=== PATIENT | male | born 1990 | race American Indian/Alaskan Native ===

== ENCOUNTER 2019-06-21 18:57 | Emergency (ER) | payer SELFPAY ==
[2019-06-21 19:20] VITALS: BP 110/84
[2019-06-21] MEDS ORDERED: KEPPRA 1,000 MG/NS 0.75% 100ML 1,000 MG/100 ML BAG IV ONE (20:05)
--- NOTE | 2019-06-21 20:10 | Emergency Department Report ---
ED Seizure HPI - General Chief Complaint: Seizure Stated Complaint: SEIZURE Time Seen by Provider: 06/21/19 19:50 Source: patient Mode of arrival: Ambulatory Limitations: No Limitations - History of Present Illness Initial Comments: Patient is 28-year-old male with history of seizure, patient is on Keppra and Vimpat. Patient presented to the ER accompanied by his stating that patient had 2 seizures today. Patient is not sure if the patient is compliant with his medication are not. Patient denied any injuries. MD Complaint: seizure -: Sudden Description of Episode: loss of consciousness, tonic-clonic movement Witnessed:: Yes Trauma: No Seizure History: known seizure disorder Place: home Possible Precipitating Event: none Associated Symptoms: denies other symptoms Treatments Prior to Arrival: none - Related Data Home Medications Medication Instructions Recorded Confirmed Last Taken Lacosamide [Vimpat] 200 mg PO BID 06/21/19 06/21/19 06/21/19 levETIRAcetam 1,000 mg PO BID 06/21/19 06/21/19 06/21/19 Allergies Allergy/AdvReac Type Severity Reaction Status Date / Time No Known Allergies Allergy Verified 06/21/19 19:23 ED Review of Systems ROS: Stated complaint: SEIZURE Other details as noted in HPI Comment: All other systems reviewed and negative Respiratory: denies: cough, orthopnea, shortness of breath, SOB with exertion, SOB at rest, wheezing Cardiovascular: denies: chest pain, palpitations Gastrointestinal: denies: abdominal pain Musculoskeletal: denies: back pain Neurological: denies: headache, weakness ED Past Medical Hx - Past Medical History Previous Medical History?: Yes Hx Seizures: Yes - Surgical History Past Surgical History?: Yes Additional Surgical History: Brain SX - Social History Smoking Status: Current Every Day Smoker Substance Use Type: None - Medications Home Medications: Home Medications Medication Instructions Recorded Confirmed Last Taken Type Lacosamide [Vimpat] 200 mg PO BID 06/21/19 06/21/19 06/21/19 History levETIRAcetam 1,000 mg PO BID 06/21/19 06/21/19 06/21/19 History ED Physical Exam - General Limitations: No Limitations General appearance: alert, in no apparent distress - Head Head exam: Present: atraumatic, normocephalic, normal inspection - Eye Eye exam: Present: normal appearance, PERRL - ENT ENT exam: Present: normal exam, normal orophraynx, mucous membranes moist - Neck Neck exam: Present: normal inspection, full ROM. Absent: tenderness, meningismus, lymphadenopathy, thyromegaly - Respiratory Respiratory exam: Present: normal lung sounds bilaterally - Cardiovascular Cardiovascular Exam: Present: regular rate, normal rhythm, normal heart sounds - GI/Abdominal GI/Abdominal exam: Present: soft, normal bowel sounds. Absent: distended, tenderness, guarding, rebound, rigid, organomegaly, mass, bruit, pulsatile mass, hernia - Extremities Exam Extremities exam: Present: normal inspection, full ROM, normal capillary refill - Back Exam Back exam: Present: normal inspection, full ROM. Absent: CVA tenderness (R), CVA tenderness (L), muscle spasm, paraspinal tenderness, vertebral tenderness - Neurological Exam Neurological exam: Present: alert, oriented X3, CN II-XII intact, normal gait, reflexes normal - Psychiatric Psychiatric exam: Present: normal mood - Skin Skin exam: Present: warm, intact, normal color ED Course Vital Signs 06/21/19 19:11 Temperature 97.4 F L Pulse Rate 74 Respiratory 18 Rate Blood Pressure 110/84 O2 Sat by Pulse 95 Oximetry ED Medical Decision Making - Lab Data Result diagrams: 06/21/19 19:32 06/21/19 19:32 - Medical Decision Making Patient is 28-year-old male with history of seizure, patient is on Keppra and Vimpat. Patient presented to the ER accompanied by his stating that patient had 2 seizures today. Patient is not sure if the patient is compliant with his medication are not. Patient denied any injuries. No seizure activity observed in the ER. Patient received 1 g of Keppra IV. Patient advised to be compliant with his medication. Patient also advised to follow-up with his neurologist in the next 2-3 days and to return to the ER if symptoms are not improved. Critical care attestation.: If time is entered above; I have spent that time in minutes in the direct care of this critically ill patient, excluding procedure time. ED Disposition Clinical Impression: Seizure Disposition: DC-01 TO HOME OR SELFCARE Is pt being admited?: No Condition: Stable Instructions: Recurrent Seizures Adult (ED) Referrals: PRIMARY CARE, [Referring] - 3-5 Days
[2019-06-21 20:40] LABS: BUN/Creatinine Ratio 10; Blood Urea Nitrogen 7 mg/dL (9-20)
[2019-06-21 20:41] LABS: Alanine Aminotransferase 15 units/L (7-56); Albumin 4.2 g/dL (3.9-5); Calcium 8.8 mg/dL (8.4-10.2); Hemolysis Index 10
[2019-06-21 20:50] LABS: Eosinophils % (Auto) 1.5 % (0.0-4.3); Hematocrit 42.4 % (35.5-45.6); Hemoglobin 14.7 gm/dl (11.8-15.2); Mean Corpuscular HGB Conc 35 % (32-34); Mean Corpuscular Volume 85 fl (84-94); Monocytes % (Auto) 9.9 % (0.0-7.3); Platelet Count 179 K/mm3 (140-440); Red Blood Count 4.99 M/mm3 (3.65-5.03); Red Cell Distribution Width 13.8 % (13.2-15.2)
[2019-06-21 20:51] LABS: Basophils # (Auto) 0.1 K/mm3 (0.0-0.1); Basophils % (Auto) 0.5 % (0.0-1.8); Eosinophils # (Auto) 0.1 K/mm3 (0.0-0.4); Lymphocytes # (Auto) 2.4 K/mm3 (1.2-5.4)
== END 2019-06-21 22:38 | disposition home or self-care (01) ==
LOC: ED 18:57
DX: G40.909 Epilepsy, unspecified, not intractable, without status epilepticus (principal); F17.200 Nicotine dependence, unspecified, uncomplicated
CPT/HCPCS: 36415; 80053; 85025; J1953

== ENCOUNTER 2021-01-14 14:38 | Emergency (ER) | payer SELFPAY ==
[2021-01-14] MEDS ORDERED: levETIRAcetam 1000 MG/NS 0.75% 1,000 MG/100 ML BAG IV ONE (16:21)
--- NOTE | 2021-01-14 16:30 | Emergency Department Report ---
ED Seizure HPI - General Chief Complaint: Seizure Stated Complaint: SEIZURE Time Seen by Provider: 01/14/21 16:13 Source: patient, EMS Mode of arrival: Ambulatory Limitations: Language Barrier - History of Present Illness Initial Comments: 30-year-old male with a past medical history of seizures presents to the hospital with complaint of seizure. He states the seizure occurred at work with no preceding symptoms and patient regained consciousness in the ambulance on the way to the hospital. Patient denies any complaints including headache, blurry v ision, neck pain, tongue biting, chest pain, shortness of breath, focal weakness, focal numbness, or urinary incontinence. He states has been compliant with his Vimpat 200 mg twice daily and his Keppra 1000 mg twice daily. His neurologist is [facility]. Last seizure was 2 months ago - Related Data Home Medications Medication Instructions Recorded Confirmed Last Taken Lacosamide [Vimpat] 200 mg PO BID 06/21/19 06/21/19 06/21/19 Previous Rx's Medication Instructions Recorded Last Taken Type levETIRAcetam 1,000 mg PO BID #60 01/14/21 Unknown Rx Allergies Allergy/AdvReac Type Severity Reaction Status Date / Time No Known Allergies Allergy Verified 06/21/19 19:23 ED Review of Systems ROS: Stated complaint: SEIZURE Other details as noted in HPI Comment: All other systems reviewed and negative ED Past Medical Hx - Past Medical History Hx Seizures: Yes - Surgical History Additional Surgical History: Brain SX - Social History Smoking Status: Former Smoker - Medications Home Medications: Home Medications Medication Instructions Recorded Confirmed Last Taken Type Lacosamide [Vimpat] 200 mg PO BID 06/21/19 06/21/19 06/21/19 History levETIRAcetam 1,000 mg PO BID #60 01/14/21 Unknown Rx ED Physical Exam - General Limitations: No Limitations - Other Other exam information: General: No acute distress Head: Atraumatic Eyes: normal appearance, pupils equal reactive to light ENT: No tongue laceration Neck: Normal appearance, no midline tenderness Chest: Clear to auscultation bilaterally CV: Regular rate and rhythm Abdomen: Soft, normal bowel sounds, nontender, nondistended, no rebound or guarding Back: Normal inspection Extremity: Normal inspection, full range of motion Neuro: Alert O x 3, no facial asymmetry, speech clear, no gross motor sensory deficit, [id number] function intact Psych: Appropriate behavior Skin: No rash ED Course Vital Signs 01/14/21 01/14/21 01/14/21 15:36 16:54 17:04 Temperature 98.6 F Pulse Rate 74 63 Respiratory 16 16 Rate Blood Pressure 112/73 Blood Pressure 122/89 [Left] O2 Sat by Pulse 100 Oximetry 01/14/21 18:18 Temperature Pulse Rate 80 Respiratory 18 Rate Blood Pressure Blood Pressure 125/83 [Left] O2 Sat by Pulse 99 Oximetry ED Medical Decision Making - Medical Decision Making Patient with history of seizure disorder who had a breakthrough seizure despite medication compliance. He arrived alert and oriented x3 without any physical or neurologic complaints. Patient was loaded with additional gram of Keppra. Patient encouraged to take medication as prescribed to follow-up with his neurologist Critical Care Time: No Critical care attestation.: If time is entered above; I have spent that time in minutes in the direct care of this critically ill patient, excluding procedure time. ED Disposition Clinical Impression: Breakthrough seizure Disposition: DC-01 TO HOME OR SELFCARE Is pt being admited?: No Does the pt Need Aspirin: No Condition: Stable Instructions: Epilepsy, [id number] Additional Instructions: Continue current medication as prescribed. Follow-up with your neurologist. Return if symptoms worsen as indicated by your discharge instructions. Prescriptions: levETIRAcetam 1,000 mg PO BID #60 Referrals: PRIMARY CARE, [Primary Care Provider] - 3-5 Days Your, neurologist [Other] - 3-5 Days Time of Disposition: 17:51
[2021-01-14 18:20] VITALS: BP 125/83
== END 2021-01-14 18:20 | disposition home or self-care (01) ==
LOC: ED 14:38
DX: G40.909 Epilepsy, unspecified, not intractable, without status epilepticus (principal); Z87.891 Personal history of nicotine dependence; Z79.899 Other long term (current) drug therapy
CPT/HCPCS: 82962; 96374; 99284; J1953